=== PATIENT | female | born 1965 | race Caucasian/White ===

== ENCOUNTER → 2016-12-14 | Outpatient (REF) | payer OTHER | LOC: M LAB REF 16:23 | PROVIDERS: ATTEND Physician Assistant Medical | DX: J10.1 Influenza due to other identified influenza virus with other respiratory manifestations (principal) ==

== ENCOUNTER 2017-04-23 21:47 | Observation (INO) | payer OTHER ==
[~2017-04-23] VITALS: Ht 153.7 cm; Wt 50.4 kg
[2017-04-24] VITALS (10 sets, daily range): BP systolic 97–119; BP diastolic 56–72
[2017-04-24] MEDS ORDERED: KETOROLAC 30 MG/ML VIAL (J1885) IV ONE (00:30)
[2017-04-24 00:44] LABS: BASO % 0.5 % (0.0-1.0); EOS # 0.2 K/mm3 (0.0-0.50); EOS % 2.4 % (0.0-3.0); LARGE UNSTAINED CELL # 0.1 K/mm3 (0.0-0.4); LARGE UNSTAINED CELL % 0.8 % (0.0-4.0); LYMPH # 1.3 K/mm3 (1.5-4.5); LYMPH % 12.9 % (24.0-44.0); MEAN CORPUSCULAR HEMOGLOBIN 29.8 pg (27.0-33.0); MEAN CORPUSCULAR HGB CONC 32.5 g/dl (32.0-36.5); MEAN CORPUSCULAR VOLUME 91.6 fl (80.0-96.0); MONO # 0.4 K/mm3 (0.0-0.8); MONO % 4.1 % (0.0-5.0); NEUTROPHILS # 7.6 K/mm3 (1.8-7.7); NEUTROPHILS % 79.4 % (36.0-66.0); PLATELET COUNT, AUTOMATED 178 k/mm3 (150-450); RED CELL DISTRIBUTION WIDTH 12.5 % (11.5-14.5); WHITE BLOOD COUNT 9.6 K/mm3 (4.0-10.0)
[2017-04-24 00:45] LABS: ALBUMIN/GLOBULIN RATIO 1.25 (1.00-1.93); ALKALINE PHOSPHATASE 74 U/L (45-117); ALT/SGPT 17 U/L (12-78); AMYLASE 55 U/L (25-115); ANION GAP 5 MEQ/L (8-16); AST/SGOT 9 U/L (15-37); BILIRUBIN,DIRECT 0.1 MG/DL (0.0-0.2); BILIRUBIN,TOTAL 0.5 MG/DL (0.2-1.0); BLOOD UREA NITROGEN 13 MG/DL (7-18); CALCIUM LEVEL 8.9 MG/DL (8.5-10.1); CARBON DIOXIDE LEVEL 28 MEQ/L (21-32); CHLORIDE LEVEL 106 MEQ/L (98-107); CREATININE FOR GFR 0.92 MG/DL (0.55-1.02); GLOMERULAR FILTRATION RATE > 60.0 (>51); GLUCOSE, FASTING 127 MG/DL (70-105); POTASSIUM SERUM 3.9 MEQ/L (3.5-5.1); SODIUM LEVEL 139 MEQ/L (136-145); TOTAL PROTEIN 7.2 GM/DL (6.4-8.2)
[2017-04-24] MEDS ORDERED: ISOVUE-370 76% 100ML VIAL (Q9967) As Ordered ONE (00:47)
--- NOTE | 2017-04-24 01:20 | REPUSA ---
CLINICAL HISTORY: Abdominal pain. TECHNIQUE: Multiple axial, sagittal and coronal CT images were obtained through the abdomen and pelvi s after administration of intravenous contrast material. COMMENTS: Enlarged appendix measuring 1.8 cm. Surrounding inflammatory fat stranding. The liver is of uniform attenuation without mass or defect. There is no intra or extrahepatic biliary ductal dilatation. The spleen is normal. The gallbladder is within normal limits. The pancreas is of normal contour and attenuation characteristics. There is no evidence of adrenal mass. Both kidneys demonstrate prompt and equal nephrograms. The kidneys are normal in size, shape and conf iguration. There is no evidence of renal or ureteral mass. No renal or ureteral calculi are identifie d. There is no hydroureter or hydronephrosis. There is no bowel wall thickening. No evidence for small or large bowel obstruction. There is no evidence of intrinsic or extrinsic bladder mass. There is small amount of free pelvic flu id. Images of the lung bases show no evidence of pleural or parenchymal mass. There are no pleural effusi ons. The bony structures are free of lytic or blastic lesions. Multilevel degenerative changes are seen in volving the thoracolumbar spine. Scattered calcifications are seen involving the aorta and major bran ches compatible with atherosclerosis. Grade 1 anterolisthesis of L5 on S1 secondary to bilateral pars defects. IMPRESSION: Acute appendicitis. No perforation or abscess formation. Small amount of free pelvic fluid. Thank you for your kind referral of this patient.
[2017-04-24] MEDS ORDERED: IBUPOTC PO (02:05)
[2017-04-24] MEDS ORDERED: ACET1TAB17 PO (02:05)
[2017-04-24] MEDS ORDERED: MACA500C2 PO (02:05)
[2017-04-24] MEDS ORDERED: VITMTA PO (02:05)
[2017-04-24] MEDS ORDERED: CALC1TAB40 PO (02:05)
[2017-04-24] MEDS ORDERED: ONDANSETRON 4MG/2ML VIAL (J2405) IV PRN ×2 (02:15→10:45)
[2017-04-24] MEDS: LR 1,000 ML IV SCH ×3 (02:15→21:02)
[2017-04-24] MEDS ORDERED: ACETAMINOPHEN TAB 650MG DOSE (2X325MG) PO PRN (02:30)
[2017-04-24] MEDS: PIPERACILLIN/TAZOBACTAM SOD 3.375 GM in D5W MINI-BAG PLUS 50 ML IV SCH ×4 (02:34→21:00)
[2017-04-24] MEDS: MORPHINE 2 MG/ML 1ML SYRINGE IV PRN ×3 (05:17→22:22)
[2017-04-24] MEDS ORDERED: ROCURONIUM BROMIDE 50 MG/5 ML VIAL/SYRINGE As Ordered ONE (09:06)
[2017-04-24] MEDS ORDERED: PROPOFOL 200 MG/20 ML VIAL As Ordered ONE (09:06)
[2017-04-24] MEDS ORDERED: fentaNYL 250 MCG/5 ML INJECTION (J3010) As Ordered ONE (09:06)
[2017-04-24] MEDS ORDERED: MIDAZOLAM INJ 2 MG/2 ML VIAL (J2250) As Ordered ONE (09:06)
[2017-04-24] MEDS ORDERED: LIDOCAINE 2% INJ 100 MG/5 ML SDV (FOR ANES.) As Ordered ONE (09:06)
[2017-04-24] MEDS ORDERED: BUPIVACAINE/EPIN 0.25% 30 ML VIAL As Ordered ONE (09:13)
[2017-04-24] MEDS ORDERED: MOM 30ML SUSPENSION UDC PO PRN (09:15)
[2017-04-24] MEDS ORDERED: ZOSYN 3.375 GM VIAL (J2543) As Ordered ONE (09:44)
[2017-04-24] MEDS ORDERED: KETOROLAC 60 MG/2 ML VIAL (J1885) As Ordered ONE (09:51)
[2017-04-24] MEDS ORDERED: ONDANSETRON 4MG/2ML VIAL (J2405) As Ordered ONE (09:51)
[2017-04-24] MEDS ORDERED: GLYCOPYRROLATE INJ 0.2 MG/ML 2 ML VIAL As Ordered ONE (09:51)
[2017-04-24] MEDS ORDERED: NEOSTIGMINE 1MG/ML 5 ML SYRINGE (J2710) As Ordered ONE (09:51)
[2017-04-24] MEDS ORDERED: fentaNYL 100 MCG/2 ML INJECTION (J3010) As Ordered ONE ×2 (10:31→11:04)
[2017-04-24] MEDS: fentaNYL 100 MCG/2 ML INJECTION (J3010) IV PRN ×5 (10:34→11:05)
[2017-04-24] MEDS ORDERED: LR 1,000 ML IV SCH (10:45)
[2017-04-24] MEDS ORDERED: METOCLOPRAMIDE INJ 10MG/2ML VIAL (J2765) IV PRN (10:45)
[2017-04-24] MEDS ORDERED: PERCOCET 5MG/325MG TAB As Ordered ONE ×2 (11:04→11:47)
[2017-04-24] MEDS: PERCOCET 5MG/325MG TAB PO PRN ×2 (11:05→11:50)
[2017-04-24] MEDS: PANTOPRAZOLE 40MG INJ (PROTONIX) (C9113) IV SCH (14:11)
[2017-04-24] MEDS: SENOKOT S TAB PO SCH ×2 (14:11→21:00)
[2017-04-24] MEDS: KETOROLAC 30 MG/ML VIAL (J1885) IV PRN ×2 (14:11→21:01)
[2017-04-24] MEDS: NORCO, ANEXSIA 5/325MG TABLET (HYDROcodone/ACETAMINOPHEN) PO PRN (17:29)
--- NOTE | 2017-04-24 19:44 | HPE ---
DATE OF ADMISSION: 04/24/2017 CHIEF COMPLAINT: Right lower quadrant abdominal pain. HISTORY OF PRESENT ILLNESS: The patient is a 52-year-old female presents with right lower quadrant abdominal pain that started Saturday evening. Throughout the day Saturday the pain has gotten progressively worse. She thought it was just gas pains and tried to bear through it, however, when she started to develop fevers in the evening she knew that something was abnormal and came to the emergency room for evaluation. On presentation to the ER she had a temperature of 101. The rest of her vitals were stable. Her labs were also stable. The white count 9.6, however, CT scan showed acute appendicitis. Therefore, I was called to evaluate. This morning, she is still having significant right lower quadrant pain that is continuing to get progressively worse, associated was some nausea. She is unable to move in the bed because of the pain so severe. No problems with vomiting. No fevers since she has been here. No change in bowel movements or problems urinating. No previous surgeries to her abdomen and no recent travel or trauma to her abdomen. PAST MEDICAL HISTORY: Negative. PAST SURGICAL HISTORY: D C. ALLERGIES: None. HOME MEDICATIONS: Multivitamin. SOCIAL HISTORY: Denies any tobacco abuse. Drinks alcohol socially. Denies any drug abuse. FAMILY HISTORY: Noncontributory. REVIEW OF SYSTEMS: Pertinent positives and negative stated in the HPI. PHYSICAL EXAMINATION: General: Alert and oriented times three. No acute distress. Vitals: Temperature 99.8, pulse 72, respirations 18, blood pressure 112/64, pulse oximetry 97% on room air. HEENT: Pupils equal, round, reactive to light and accommodation. Heart: S1, S2, regular rate and rhythm. Lungs are clear to auscultation bilaterally. Abdomen: Soft, tender to palpation right lower quadrant with localized guarding and rigidity. Extremities: No clubbing, cyanosis or edema. LABS: White count 9.6, hemoglobin 12.6, platelets 178, potassium 3.9, creatinine 0.92. IMAGING STUDIES: CT abdomen and pelvis shows enlarged appendix at 1.8 cm with surrounding inflammatory fat stranding suspicious for appendicitis. ASSESSMENT/PLAN: The patient is a 52-year-old female with acute appendicitis. Recommendation to proceed with laparoscopic, possible open appendectomy. Risks and benefits of the procedure not limited to but including bleeding, infection, hernia formation, damage to surrounding structures, need for further surgery were discussed in detail with the patient. Informed consent was obtained and procedure was planned. The procedure was planned for this morning. Postoperatively she will be kept overnight with antibiotics until she is fever free for 24 hours with plan for discharge home in the morning.
[2017-04-25] VITALS: BP 95/57
[2017-04-25] MEDS: NORCO, ANEXSIA 5/325MG TABLET (HYDROcodone/ACETAMINOPHEN) PO PRN ×2 (00:23→06:18)
[2017-04-25] MEDS: LR 1,000 ML IV SCH (02:15)
[2017-04-25] MEDS: MORPHINE 2 MG/ML 1ML SYRINGE IV PRN (02:40)
[2017-04-25] MEDS: PIPERACILLIN/TAZOBACTAM SOD 3.375 GM in D5W MINI-BAG PLUS 50 ML IV SCH ×2 (03:06→08:47)
[2017-04-25] MEDS: KETOROLAC 30 MG/ML VIAL (J1885) IV PRN (03:06)
[2017-04-25 04:00] VITALS: BP 93/53
[2017-04-25 07:29] LABS: MEAN CORPUSCULAR HEMOGLOBIN 31.6 pg (27.0-33.0); MEAN CORPUSCULAR HGB CONC 34.3 g/dl (32.0-36.5); MEAN CORPUSCULAR VOLUME 92.2 fl (80.0-96.0); RED CELL DISTRIBUTION WIDTH 12.5 % (11.5-14.5); WHITE BLOOD COUNT 5.3 K/mm3 (4.0-10.0)
[2017-04-25 07:43] LABS: ANION GAP 3 MEQ/L (8-16); BLOOD UREA NITROGEN 9 MG/DL (7-18); CALCIUM LEVEL 8.1 MG/DL (8.5-10.1); CARBON DIOXIDE LEVEL 29 MEQ/L (21-32); CHLORIDE LEVEL 108 MEQ/L (98-107); CREATININE FOR GFR 0.87 MG/DL (0.55-1.02); GLOMERULAR FILTRATION RATE > 60.0 (>51); GLUCOSE, FASTING 104 MG/DL (70-105); POTASSIUM SERUM 4.1 MEQ/L (3.5-5.1); SODIUM LEVEL 140 MEQ/L (136-145)
[2017-04-25 08:00] VITALS: BP 94/50
[2017-04-25] MEDS ORDERED: CIPR500T3 PO (08:13)
[2017-04-25] MEDS ORDERED: NORCOTAB PO (08:13)
[2017-04-25] MEDS ORDERED: METR1TAB66 PO (08:13)
[2017-04-25] MEDS ORDERED: SENN1TAB2 PO (08:13)
[2017-04-25] MEDS: PANTOPRAZOLE 40MG INJ (PROTONIX) (C9113) IV SCH (08:47)
[2017-04-25] MEDS: SENOKOT S TAB PO SCH (08:47)
--- NOTE | 2017-04-26 10:15 | RO ---
DATE OF PROCEDURE: 04/25/2017 PREOPERATIVE DIAGNOSIS: Acute appendicitis. POSTOPERATIVE DIAGNOSIS: Acute appendicitis. PROCEDURE : Laparoscopic appendectomy. SURGEON: Dr. Ankit Perea SENIOR ELECTRONICS DESIGN ENGINEER: None. ANESTHESIA: General. ESTIMATED BLOOD LOSS: 5. COMPLICATIONS: None. INDICATIONS FOR PROCEDURE: The patient is a 52-year-old female who presents with a right lower quadrant pain found to have acute appendicitis on CT scan. Recommendation to proceed with laparoscopic, possible open appendectomy. Risks and benefits of procedure not limited but including bleeding, infection, hernia formation, damage surrounding structure, need further surgery were discussed in detail with the patient. Informed consent was obtained. Procedure was planned. PROCEDURE: The patient brought back to operating room #6. After sufficient sedation the abdomen was sterilely prepped and draped. Next, a time-out was done and confirm proper patient and proper procedure. Next a 5 mm made in left upper quadrant, Veress needle was inserted and the abdomen was insufflated 50 mmHg. Next, a 5 mm port was used to gain access to the abdomen, the abdomen was examined and the appendix could easily be identified on the lateral to the cecum. 8 mm port was placed infraumbilically. 5 mm port was placed suprapubically in the midline. The appendix was elevated up into the air, mesoappendix was carefully dissected free using the Enseal until the base the appendix was reached. Once the base of the appendix was reached it was ligated twice using PDS Endoloops and then amputated using the Enseal. Once the appendix was amputated there was a little bit of stool leakage that was contained to the right lower quadrant, appendix was brought out an EndoCatch bag. Right lower quadrant was aspirated without irrigation to avoid spreading. 19-[place] drain was then placed right around the base of the cecum and brought out through the suprapubic midline port site. The drain was sutured in place with a 2-0 nylon suture. Next fascia at the umbilical port site had to be widened to pull out the large appendix, this was sutured using a 0 Vicryl suture. Once this was completed, the abdomen was desufflated. Skin incisions were closed 4-0 Vicryl subcuticular sutures. The abdomen was cleaned and dried. Steri-Strips 4x4 and tape were applied thus ending procedure.
[2017-04-26] MEDS ORDERED: AUGM500T34 PO (23:06)
[2017-04-26] MEDS ORDERED: SENN1TAB2 PO (23:08)
[2017-04-26] MEDS ORDERED: NORC1TAB4 PO (23:08)
[2017-04-26] MEDS ORDERED: CIPR500T3 PO (23:08)
--- NOTE | 2017-04-27 14:06 | DSES ---
DATE OF ADMISSION: 04/24/2017 DATE OF DISCHARGE: 04/25/2017 ADMISSION DIAGNOSIS: Acute appendicitis. DISCHARGE DIAGNOSIS: Acute appendicitis. HOSPITAL COURSE: Patient is a 52-year-old female who presents on 04/24/2017 with severe right lower abdominal pain. She came the emergency room, found to have a fever as well as a CT findings suspicious for acute appendicitis. After careful history and physical, the recommendation was to take her for a laparoscopic appendectomy. She underwent that procedure yesterday morning on 04/24/2017. Postoperatively she did well. She had a drain left in place because of a little bit of stool drainage when the appendix burst open. This morning her drain is serosanguineous. No signs of any purulence or cloudiness to the drain. Her pain is much improved. No fevers overnight tolerating diet, ambulating okay and urinating appropriately. PLAN: Discharge home this morning. She will go home with a pain pill, stool softener as well as some antibiotics for another 7 days. She was given all of her discharge instructions. She can shower when she gets home. No lifting more 20 pounds. No bathing for 5 days and to call my office with any questions. She will follow up with me in 2 weeks for postop appointment.
== END 2017-04-25 11:30 | disposition home or self-care (01) ==
LOC: M ED 21:47 → M ED INP 04-24 01:47 → M PED 04-24 03:00
PROVIDERS: ADMIT Surgery; ATTEND Surgery
DX: K35.89 Other acute appendicitis (principal)
CPT/HCPCS: 36415; 44970; 74177; 80048; 80076; 81001; 82150; 83690; 85025; 85027; 86140; 88304; 96365; 96366; 96375; 96376; 99284; C9113; J1885; J2250; J2405; J2543; J2710; J3010; Q9967

== ENCOUNTER 2017-04-26 21:20 | Inpatient (IN) | payer OTHER ==
[~2017-04-26] VITALS: Ht 154.9 cm; Wt 49.4 kg
[~2017-04-26 21:20] MED LIST: ACET1TAB17 PO; CALC1TAB40 PO; CIPR500T3 PO; IBUPOTC PO; MACA500C2 PO; METR1TAB66 PO; NORCOTAB PO; SENN1TAB2 PO; VITMTA PO
[2017-04-26 22:59] LABS: ANION GAP 7 MEQ/L (8-16); BLOOD UREA NITROGEN 11 MG/DL (7-18); CALCIUM LEVEL 8.6 MG/DL (8.5-10.1); CARBON DIOXIDE LEVEL 29 MEQ/L (21-32); CHLORIDE LEVEL 107 MEQ/L (98-107); GLOMERULAR FILTRATION RATE > 60.0 (>51); GLUCOSE, FASTING 100 MG/DL (70-105); POTASSIUM SERUM 3.9 MEQ/L (3.5-5.1); SODIUM LEVEL 143 MEQ/L (136-145)
[2017-04-26] MEDS ORDERED: ONDANSETRON 4MG/2ML VIAL (J2405) IV PRN (23:00)
[2017-04-26] MEDS ORDERED: NORCO, ANEXSIA 5/325MG TABLET (HYDROcodone/ACETAMINOPHEN) PO PRN ×2 (23:00)
[2017-04-26 23:04] LABS: BASO % 0.5 % (0.0-1.0); EOS # 0.3 K/mm3 (0.0-0.50); EOS % 4.4 % (0.0-3.0); LARGE UNSTAINED CELL # 0.1 K/mm3 (0.0-0.4); LARGE UNSTAINED CELL % 1.6 % (0.0-4.0); LYMPH # 1.5 K/mm3 (1.5-4.5); LYMPH % 20.1 % (24.0-44.0); MEAN CORPUSCULAR HEMOGLOBIN 31.3 pg (27.0-33.0); MEAN CORPUSCULAR HGB CONC 34.2 g/dl (32.0-36.5); MEAN CORPUSCULAR VOLUME 91.6 fl (80.0-96.0); MONO # 0.3 K/mm3 (0.0-0.8); MONO % 4.5 % (0.0-5.0); NEUTROPHILS # 5.1 K/mm3 (1.8-7.7); PLATELET COUNT, AUTOMATED 202 k/mm3 (150-450); WHITE BLOOD COUNT 7.4 K/mm3 (4.0-10.0)
[2017-04-26] MEDS ORDERED: AUGM500T34 PO (23:06)
[2017-04-26] MEDS ORDERED: SENN1TAB2 PO (23:08)
[2017-04-26] MEDS ORDERED: NORC1TAB4 PO (23:08)
[2017-04-26] MEDS ORDERED: CIPR500T3 PO (23:08)
[2017-04-26] MEDS ORDERED: GASTROGRAFIN SOLUTION 30ML PO ONE (23:10)
[2017-04-26] MEDS ORDERED: ISOVUE-370 76% 100ML VIAL (Q9967) As Ordered ONE (23:23)
[2017-04-26] MEDS ORDERED: GASTROGRAFIN SOLUTION 30ML (Q9963) PO ONE (23:40)
[2017-04-27 00:30] VITALS: BP 115/81
[2017-04-27] MEDS: metroNIDAZOLE 500 MG in APPROPRIATE DILUENT 1 EA IV SCH ×3 (00:32→16:00)
--- NOTE | 2017-04-27 02:00 | REPUSA ---
CLINICAL HISTORY: Abdominal pain. TECHNIQUE: Multiple axial, sagittal and coronal CT images were obtained through the abdomen and pelvi s after administration of oral and intravenous contrast material. COMMENTS: Comparison to the prior exam performed on 04/24/2017. Recent appendectomy. 4.1x3.8 cm abscess formation in the surgical bed containing air densities. Surrounding inflammatory fat stranding. Surrounding enlarged lymph nodes with the largest measuring 1.4 cm. The liver is of uniform attenuation without mass or defect. There is no intra or extrahepatic biliary ductal dilatation. The spleen is normal. The gallbladder is within normal limits. The pancreas is of normal contour and attenuation characteristics. There is no evidence of adrenal mass. Both kidneys demonstrate prompt and equal nephrograms. The kidneys are normal in size, shape and conf iguration. There is no evidence of renal or ureteral mass. No renal or ureteral calculi are identifie d. There is no hydroureter or hydronephrosis. There is no bowel wall thickening. No evidence for small or large bowel obstruction. There is no evidence of intrinsic or extrinsic bladder mass. Images of the lung bases show no evidence of pleural or parenchymal mass. There are minimal bilateral pleural effusions. The bony structures are free of lytic or blastic lesions. IMPRESSION: Appendectomy. Abscess formation in the surgical bed. Surrounding inflammatory changes. Surrounding lymph node enlargement. Interval appearance of minimal pleural effusions with passive atelectatic airspace disease in the low er lobes. Thank you for your kind referral of this patient.
[2017-04-27] MEDS: CIPROFLOXACIN 400 MG in APPROPRIATE DILUENT 1 EA IV SCH ×2 (02:19→12:46)
[2017-04-27] MEDS: ACETAMINOPHEN TAB 650MG DOSE (2X325MG) PO PRN (06:34)
[2017-04-27 08:00] VITALS: BP 117/76
--- NOTE | 2017-04-27 11:30 | HPEPDOC ---
General Surgery H&P Date of Admission Apr 26, 2017 at 22:48 History and Physical CHIEF COMPLAINT: fever HISTORY OF PRESENT ILLNESS: [address] Perea who had laparoscopic appendectomy performed 2 days ago and discharged home yesterday. Patient called me (reception interviewer) for recurrent fevers when she got home. Last night she reports vomiting x 1 episode which she attributed to taking her oral antibiotics. This morning she notes a fever of 101 and she has been taking ibuprofen and fever persists. She feels ill when she is febrile, mildly nauseated, no diarrhea. She reports her abdomen feels only mildly tender where the incisions are. She denies being short of breath. As the fever continues she was advised to come in and she is subsequently admitted. ALLERGIES: Please see below. HOME MEDICATIONS: Please see below. PAST MEDICAL HISTORY: recent acute appendicitis PAST SURGICAL HISTORY: 1. D&C 2, laparoscopic appendectomy PERSONAL/SOCIAL HISTORY: Denies smoking, alcohol use, or recreational drug use. REVIEW OF SYSTEMS: GENERAL: fever, fatigue since surgery. HEENT: Denies blurred vision and double vision. Denies ear symptoms. Denies hoarseness. NECK: Denies any neck pain. CARDIOVASCULAR: Denies chest pain and palpitations. MUSCULOSKELETAL: Denies arthralgias, back pain and thrombophlebitis. SKIN: Denies rash. NEUROLOGIC: Denies headache, stroke and transient ischemic attack. PSYCHIATRIC: Denies anxiety and depression. ENDOCRINE: Denies thyroid disease. HEMATOLOGY/ONCOLOGY: Denies any bleeding or clotting disorder. HEART: Denies any chest pains, palpitations, paroxysmal dyspnea, orthopnea. PULMONARY: Denies chronic cough, dyspnea and wheezing. GASTROINTESTINAL: Denies rectal bleeding, family history of colon cancer, constipation, diarrhea, dysphagia, heartburn and jaundice. GENITOURINARY: Denies dysuria, frequency, hematuria and nocturia. ENDOCRINE: Denies polydipsia, polyphagia, polyuria, heat or cold intolerance. INFECTIOUS: Denies any recent upper respiratory tract infection, UTI, need for use of antibiotics. NUTRITION: Reports good appetite. PHYSICAL EXAMINATION: VITAL SIGNS: Please see below. GENERAL APPEARANCE: Patient seen at bedside, appears comfortable. Awake, alert, oriented. HEENT: Normocephalic, atraumatic. [place] palpebral conjunctivae. Anicteric sclerae. Lips moist. CHEST: No chest wall abnormalities. Normal respiratory motion/effort. NECK: Supple. No thyromegaly. No lymphadenopathies. LUNGS: Lung sounds are clear to auscultation bilaterally. No wheezing appreciated. HEART: No chest wall abnormalities. Heart rate and rhythm are regular with no murmurs. ABDOMEN: Abdomen is flat, soft, nondistended. mmild tenderness at umbilical port site and right lower quadrant . SKIN: Warm, moist. EXTREMITIES: Extremities have no deformities. No edema identified. NEUROLOGICAL: awake, alert, oriented. ANCILLARIES: . LABORATORY DATA: Please see below. MICROBIOLOGY: Please see below. IMAGING: CT of abdomen and pelvis Appendectomy. Abscess formation in the surgical bed. Surrounding inflammatory changes. Surrounding lymph node enlargement. Interval appearance of minimal pleural effusions with passive atelectatic airspace disease in the lower lobes. IMPRESSION AND PLAN: H/O acute appendicitis postop fever Too early for an abscess but certainly the fluid collection can be infected. Other sources of the fever includes the atelectasis. I will admit the patient for IV antibiotics. Encouraged patient to do deep breathing exercises/incentive spirometers. If still febrile, will consider percutaneous drainage of the fluid on saturday when radiology is available. Vital Signs Vital Signs Date Time Temp Pulse Resp B/P (MAP) Pulse Ox O2 Delivery O2 Flow Rate FiO2 04/27/17 08:00 98.8 65 18 117/76 (90) 97 Room Air I&Os I&O- Last 24 Hours up to 6 AM 04/27/17 06:00 Intake Total 300 ml Output Total 300 ml Balance 0 ml Laboratory Data Labs 24H Laboratory Tests 2 04/26/17 22:27: White Blood Count 7.4, Red Blood Count 3.71L, Hemoglobin 11.6L, Hematocrit 34.0L , Mean Corpuscular Volume 91.6, Mean Corpuscular Hemoglobin 31.3, Mean Corpuscular Hemoglobin Concent 34.2, Red Cell Distribution Width 12.0, Platelet Count 202, Neutrophils (%) (Auto) 69.0H, Lymphocytes (%) (Auto) 20.1L, Monocytes (%) (Auto) 4.5, Eosinophils (%) (Auto) 4.4H, Basophils (%) (Auto) 0.5 , Neutrophils # (Auto) 5.1, Lymphocytes # (Auto) 1.5, Monocytes # (Auto) 0.3, Eosinophils # (Auto) 0.3, Basophils # (Auto) 0.0, Large Unclassified Cells % 1.6 , Large Unclassified Cells # 0.1, Anion Gap 7L, Glomerular Filtration Rate > 60.0, Lactic Acid Level 0.7, Blood Urea Nitrogen 11, Creatinine 0.70, Sodium Level 143, Potassium Level 3.9, Chloride Level 107, Carbon Dioxide Level 29, Calcium Level 8.6 CBC/BMP Laboratory Tests 04/26/17 22:27 Red Blood Count 3.71 L, Mean Corpuscular Volume 91.6, Mean Corpuscular Hemoglobin 31.3, Mean Corpuscular Hemoglobin Concent 34.2, Red Cell Distribution Width 12.0, Neutrophils (%) (Auto) 69.0 H, Lymphocytes (%) (Auto) 20.1 L, Monocytes (%) (Auto) 4.5, Eosinophils (%) (Auto) 4.4 H, Basophils (%) ( Auto) 0.5, Neutrophils # (Auto) 5.1, Lymphocytes # (Auto) 1.5, Monocytes # (Auto ) 0.3, Eosinophils # (Auto) 0.3, Basophils # (Auto) 0.0, Calcium Level 8.6 Microbiology Microbiology 04/26/17 Blood Culture, Received Pending 04/26/17 Blood Culture, Received Pending Home Medications Scheduled (Calcium & Magnesium + Zin 334-134-5 mg) 1 Tab Tab, 1 TAB PO BID, (Reported) (Senna Plus 8.6-50 mg) 1 Tab Tab, 1 TAB PO BID, (Reported) Ciprofloxacin HCl (Ciprofloxacin HCl) 500 Mg Tab, 500 MG PO BID, (Reported) Stacy Root (Stacy) 500 Mg Cap, 500 MG PO DAILY, (Reported) Multivitamins *[facility] STOCKED* (Thera M Plus *[facility]OCK[facility]*) 1 Tab Tab, 1 TAB PO DAILY, (Reported) Scheduled PRN Acetaminophen (Acetaminophen) 325 Mg Tab, 650 MG PO Q4H PRN for PAIN, (Reported) Acetaminophen/Hydrocodone ([place] 5-325 mg) 1 Tab Tab, 1 TAB PO Q6H PRN for PAIN SCALE 6-10, (Reported) Ibuprofen (Ibuprofen) 200 Mg Tab, 400 MG PO Q6H PRN for PAIN, (Reported) Allergies Coded Allergies: No Known Allergies (Verified , 03/15/03) CONCHA BEJARANO MD Apr 27, 2017 11:30
[2017-04-27 16:00] VITALS: BP 137/85
[2017-04-27 20:00] VITALS: BP 126/84
[2017-04-27] MEDS: SENNA 8.6 MG TAB (SENOKOT) PO SCH (21:24)
[2017-04-28] VITALS: BP 111/73
[2017-04-28] MEDS: metroNIDAZOLE 500 MG in APPROPRIATE DILUENT 1 EA IV SCH ×4 (00:37→23:23)
[2017-04-28] MEDS: CIPROFLOXACIN 400 MG in APPROPRIATE DILUENT 1 EA IV SCH ×2 (02:11→13:19)
[2017-04-28] MEDS: ACETAMINOPHEN TAB 650MG DOSE (2X325MG) PO PRN (06:49)
[2017-04-28 07:22] LABS: BASO % 0.3 % (0.0-1.0); EOS # 0.2 K/mm3 (0.0-0.50); LARGE UNSTAINED CELL # 0.1 K/mm3 (0.0-0.4); LARGE UNSTAINED CELL % 1.5 % (0.0-4.0); LYMPH # 1.2 K/mm3 (1.5-4.5); LYMPH % 18.9 % (24.0-44.0); MEAN CORPUSCULAR HEMOGLOBIN 31.2 pg (27.0-33.0); MEAN CORPUSCULAR HGB CONC 34.2 g/dl (32.0-36.5); MEAN CORPUSCULAR VOLUME 91.1 fl (80.0-96.0); MONO # 0.4 K/mm3 (0.0-0.8); NEUTROPHILS # 4.3 K/mm3 (1.8-7.7); NEUTROPHILS % 70.2 % (36.0-66.0); PLATELET COUNT, AUTOMATED 231 k/mm3 (150-450); RED CELL DISTRIBUTION WIDTH 12.3 % (11.5-14.5); WHITE BLOOD COUNT 6.1 K/mm3 (4.0-10.0)
[2017-04-28 07:38] LABS: ANION GAP 8 MEQ/L (8-16); BLOOD UREA NITROGEN 6 MG/DL (7-18); CALCIUM LEVEL 8.6 MG/DL (8.5-10.1); CARBON DIOXIDE LEVEL 28 MEQ/L (21-32); CHLORIDE LEVEL 106 MEQ/L (98-107); CREATININE FOR GFR 0.72 MG/DL (0.55-1.02); GLOMERULAR FILTRATION RATE > 60.0 (>51); GLUCOSE, FASTING 98 MG/DL (70-105); POTASSIUM SERUM 4.3 MEQ/L (3.5-5.1); SODIUM LEVEL 142 MEQ/L (136-145)
[2017-04-28 09:00] VITALS: BP 120/77
[2017-04-28] MEDS: SENNA 8.6 MG TAB (SENOKOT) PO SCH ×2 (09:01→20:17)
[2017-04-28 16:30] VITALS: BP 115/83
[2017-04-28 19:00] VITALS: BP 131/84
[2017-04-28 22:00] VITALS: BP 112/73
[2017-04-29] MEDS: CIPROFLOXACIN 400 MG in APPROPRIATE DILUENT 1 EA IV SCH ×2 (00:32→13:16)
[2017-04-29] MEDS ORDERED: FUROSEMIDE 40 MG/4 ML VIAL (J1940) IV ONE (03:15)
[2017-04-29 06:00] VITALS: BP 112/78
[2017-04-29] MEDS: SENNA 8.6 MG TAB (SENOKOT) PO SCH (08:10)
[2017-04-29] MEDS: metroNIDAZOLE 500 MG in APPROPRIATE DILUENT 1 EA IV SCH ×2 (08:11→15:12)
[2017-04-29] MEDS ORDERED: MORPHINE 2 MG/ML 1ML SYRINGE IV ONE (10:30)
[2017-04-29 14:00] VITALS: BP 119/83
[2017-04-29 17:20] VITALS: BP 118/80
--- NOTE | 2017-04-29 17:48 | REP ---
ULTRASOUND, RIGHT LOWER QUADRANT: Real-time sonographic evaluation of the right lower extremity was performed. COMPARISON: Made with recent CT scan 04/27/2017 which showed a small air/fluid collection adjacent to the cecum. Ultrasound of the pericecal region demonstrates edematous and phlegmonous change without a definite discrete fluid collection. Recommend clinical followup and if there is clinical concern for abscess than a repeat CT scan should be performed. Signed by Ankit Mccoy MD 04/30/2017 04:37 P
--- NOTE | 2017-05-02 16:38 | DSES ---
DATE OF ADMISSION: 04/26/2017 DATE OF DISCHARGE: 04/29/2017 ADMISSION DIAGNOSES: 1. Fever. 2. Abdominal pain. DISCHARGE DIAGNOSIS: Postoperative atelectasis. HOSPITAL COURSE: The patient is a 52-year-old female who presented status post laparoscopic appendectomy. She had her surgery completed on April 24 and was discharged home on April 25. She returned to the hospital on the evening of April 26 due to having persistent fevers at home. In the emergency room (ER) she had a temperature of 99.1 initially that went up to 100.1, she had some abdominal pains. A CT scan that shows a small fluid collection right at the base of her appendix, but her labs were all within normal range. CT scan also showed a little bit of atelectasis in the base of her right lung. She was kept in the hospital over the weekend, IV fluids, incentive spirometry. As soon as she started to use the incentive spirometry, her pain immediately improved, and all her feverish symptoms went away. No real problems with abdominal pain. She was tolerating a diet, having normal bowel movements during this stay. Her white count remains normal, 7.4 and 6.1. On the morning of April 29, we had interventional radiology re-examine for possible drainage of this fluid collection in her right lower side; however, on ultrasound exam there was no visible collection. The collection that was seen on the initial CT scan was likely a postoperative seroma, just like fluid collection, that was secondary to her surgery. It was less likely an abscess, since all of her symptoms were relieved by incentive spirometry. With an mind, she was discharged home. She already had Cipro and Flagyl that she was discharged home with originally. She will continue to use up the rest of those medications for about 5 days in length. She was advised to continue using her incentive spirometry as well and call the office if there is any new problems or questions that arise.
== END 2017-04-29 18:20 | disposition home or self-care (01) | DRG 206 ==
LOC: M ED 21:20 → M ED INP 22:48 → M PED 04-27 00:15 → M MSPAV 04-28 19:25
PROVIDERS: ADMIT Surgery; ATTEND Surgery
DX: J98.11 Atelectasis (principal); K91.872 Postprocedural seroma of a digestive system organ or structure following a digestive system procedure; R50.82 Postprocedural fever; Z79.899 Other long term (current) drug therapy

== ENCOUNTER → 2017-11-20 | Outpatient (REF) | payer OTHER ==
[2017-11-30 00:07] LABS: HPV HYBRID CAPTURE II Negative (Negative)
== END ==
LOC: M SFHCWAGY 09:52
DX: Z12.4 Encounter for screening for malignant neoplasm of cervix (principal)
CPT/HCPCS: G0123

== ENCOUNTER → 2017-11-29 | Outpatient (CLI) | payer OTHER | LOC: M WHC 08:07 | DX: Z12.31 Encounter for screening mammogram for malignant neoplasm of breast (principal) ==

== ENCOUNTER → 2018-12-18 | Outpatient (CLI) | payer OTHER ==
[~2018-12-18] MED LIST changes: -ACET1TAB17 PO; +ACET1TAB55 PO; +AUGM500T34 PO; +HYDR-3715 PO; +METR-265 PO; -METR1TAB66 PO; +NORC1TAB7 PO; -NORCOTAB PO; -SENN1TAB2 PO; +SENN1TAB40 PO
--- NOTE | 2018-12-18 11:00 | REPMRS ---
Patient History The patient states she had a clinical breast exam in 12/2018. Family history of ovarian cancer at age 50 or over in maternal grandmother. Digital Woman Screen Mammo: December 18, 2018 - Exam #: [id number] Bilateral CC and MLO view(s) were taken. Technologist: Chiqui Awan, Technologist Prior study comparison: November 29, 2017, digital woman screen mammo performed at [facility]. June 12, 2016, digital woman screen mammo performed at [facility]. March 22, 2015, digital woman screen mammo performed at [facility]. FINDINGS: The breast tissue is heterogeneously dense. This may lower the sensitivity of mammography. There is a moderate amount of heterogeneously dense fibroglandular tissue which is fairly symmetric. There is no interval development of dominant mass, architectural distortion, or clustered microcalcification typical of malignancy. There has been no change in the appearance of the mammogram from the prior studies. 3-D tomosynthesis shows no additional findings. Assessment: BI-RADS/ACR category 1 mammogram. Negative Mammogram. Recommendation Routine screening mammogram of both breasts in 1 year (for women over age 40). This patient's Lifetime Breast Cancer RIsk is estimated at 12.5 %. This mammogram was interpreted with the aid of an FDA-approved computer-aided dectection system. Electronically Signed By: Farhat Pham MD 12/18/18 [id number]
== END ==
LOC: M WHC 08:43
PROVIDERS: ATTEND Nurse Practitioner Family
DX: Z12.31 Encounter for screening mammogram for malignant neoplasm of breast (principal)

== ENCOUNTER → 2018-12-18 | Outpatient (REF) | payer OTHER | LOC: M SFHCWAGY 09:16 | PROVIDERS: ATTEND Nurse Practitioner Family | DX: Z12.4 Encounter for screening for malignant neoplasm of cervix (principal) ==

== ENCOUNTER → 2020-04-20 | Outpatient (CLI) | payer OTHER ==
[~2020-04-20] MED LIST changes: +SENN-53 PO; -SENN1TAB40 PO
--- NOTE | 2020-05-09 13:36 | REPMRS ---
Patient History The patient states she had a clinical breast exam in 04/2020. Patient is postmenopausal and had first child at age 32. Family history of ovarian cancer at age 50 or over in maternal grandmother. Digital Woman Screen Mammo: April 20, 2020 - Exam #: [id number] Bilateral CC and MLO view(s) were taken. Technologist: Denise Cavazos, Technologist Prior study comparison: December 18, 2018, bilateral digital woman screen mammo performed at [facility]. November 29, 2017, digital woman screen mammo performed at [facility]. June 12, 2016, digital woman screen mammo performed at [facility]. FINDINGS: The breast tissue is extremely dense which could obscure a lesion on mammography. The [place]para volumetric breast density category is: D. There is an extremely dense symmetrical pattern of residual fibroglandular tissue. There has been no change in the appearance of the mammogram from the previous studies. There is no interval development of dominant mass, archetectural distortion, or grouped microcalcifications suggestive of malignancy. 3-D tomosynthesis shows no additional findings. Assessment: BI-RADS/ACR category 1 mammogram. Negative Mammogram. Recommendation Routine screening mammogram of both breasts in 1 year (for women over age 40). This patient's Lifetime Breast Cancer RIsk is estimated at 11.9 %. This mammogram was interpreted with the aid of an FDA-approved computer-aided dectection system. Electronically Signed By: Farhat Pham MD 05/09/20 [id number]
== END ==
LOC: M WHC 07:32
PROVIDERS: ATTEND Nurse Practitioner Family
DX: Z12.31 Encounter for screening mammogram for malignant neoplasm of breast (principal); Z78.0 Asymptomatic menopausal state

== ENCOUNTER → 2020-04-20 | Outpatient (REF) | payer OTHER | LOC: M SFHCPLAZ 11:40 | PROVIDERS: ATTEND Nurse Practitioner Family | DX: Z12.4 Encounter for screening for malignant neoplasm of cervix (principal) ==

== ENCOUNTER → 2021-06-07 | Outpatient (CLI) | payer OTHER ==
--- NOTE | 2021-06-07 09:16 | REPMRS ---
Patient History The patient states she had a clinical breast exam 06-07-2021. Patient is postmenopausal and had first child at age 32. Family history of ovarian cancer at age 83 in maternal grandmother. No Hormone Replacement Therapy Patient states no breast complaints today. Patient has signed MRS History Sheet. Digital Woman Screen Mammo: June 07, 2021 - Exam #: [id number] Bilateral CC and MLO view(s) were taken. Technologist: Sharla Rosenberg, Chief Supply Chain Officer Prior study comparison: April 20, 2020, bilateral digital woman screen mammo performed at [facility]. December 18, 2018, bilateral digital woman screen mammo performed at [facility]. FINDINGS: The breast tissue is extremely dense which could obscure a lesion on mammography. Screening. Digital screening (2D) mammography was performed bilaterally in the CC and MLO projections. Additionally, breast tomosynthesis (3D mammography) was performed bilaterally in the CC and MLO projections. Todays exam was compared to the prior exam/exams. By history, the patient has no complaints of a palpable breast abnormality or other significant breast complaints. The breasts are unchanged in size and shape. Once again, dense heterogenous fibroglandular elements are seen bilaterally in a stable appearing pattern but to such a degree that the sensitivity of the mammogram in detecting cancer is decreased.There are no margarita-soft tissue densities or spiculated masses. There is no internal architectural distortion. Once again, stable benign appearing calcifications are seen.There are no suspicious margarita-calcific clusters. Skin thickening or nipple retraction is not present. IMPRESSION: BI-RADS Category 2- Benign Findings. There is no evidence of malignant alteration of the breasts. Followup examination recommended in one year. The Volpara volumetric breast density category is D, the breasts are extremely dense which lowers the sensitivity of mammography. This mammogram was read with the assistance of [employer],an FDA approved computer aided detection system for mammography. The lifetime Tyrer-Cuzick score is 11.4 % Due to the density of the breasts or Tyrer Cuzick score of 20% or greater, MRI/whole breast screening ultrasound is warranted. Negative x-ray reports should not delay surgical consultation if a dominant or clinically suspicious mass is present. Not all breast cancers can be identified by mammography. Therefore, we recommend that you continue to perform regular breast self-examination and physical examination and then promptly contact your physician of any concerns or changes. Adenosis and dense breasts may obscure an underlying neoplasm. Assessment: BI-RADS/ACR category 2 mammogram. Benign Findings. Recommendation Routine screening mammogram of both breasts in 1 year. Electronically Signed By: Miguel Vasquez DO 06/07/21 0915
== END ==
LOC: M WHC 07:53
PROVIDERS: ATTEND Nurse Practitioner Women's Health
DX: Z12.31 Encounter for screening mammogram for malignant neoplasm of breast (principal); Z80.41 Family history of malignant neoplasm of ovary; R92.1 Mammographic calcification found on diagnostic imaging of breast

== ENCOUNTER → 2021-06-07 | Outpatient (REF) | payer OTHER | LOC: M SFHCWAGY 14:08 | PROVIDERS: ATTEND Nurse Practitioner Women's Health | DX: Z12.4 Encounter for screening for malignant neoplasm of cervix (principal); Z95.2 Presence of prosthetic heart valve ==

== ENCOUNTER → 2021-10-26 | Outpatient (REF) | payer OTHER ==
[2021-10-26 17:04] LABS: APPEARANCE, URINE CLEAR (CLEAR); BACTERIA, URINE AUTO 2+ (NEGATIVE); BILIRUBIN, URINE AUTO NEGATIVE (NEGATIVE); BLOOD, URINE BLOOD 3+ (NEGATIVE); COLOR, URINE YELLOW (YELLOW); GLUCOSE, URINE (UA) AUTO NEGATIVE (NEGATIVE); KETONE, URINE AUTO NEGATIVE (NEGATIVE); LEUKOCYTE ESTERASE, URINE AUTO 3+ (NEGATIVE); NITRITE, URINE AUTO POSITIVE (NEGATIVE); PROTEIN, URINE AUTO 2+ mg/dL (NEGATIVE); RBC, URINE AUTO TNTC /HPF (0-3); SPECIFIC GRAVITY URINE AUTO 1.006 (1.002-1.035); SQUAMOUS EPITHELIAL CELL UR AU 0 /HPF (0-6); UROBILINOGEN, URINE AUTO 0.2 mg/dL (0.0-2.0); WBC, URINE AUTO TNTC /HPF (0-3)
== END ==
LOC: M LAB REF 16:09
PROVIDERS: ATTEND Physician Assistant
DX: N39.0 Urinary tract infection, site not specified (principal)

== ENCOUNTER → 2022-04-24 | Outpatient (CLI) | payer OTHER | LOC: M PLALAB 11:04 | PROVIDERS: ATTEND Advanced Practice Midwife | DX: Z13.89 Encounter for screening for other disorder (principal); Z80.41 Family history of malignant neoplasm of ovary ==

== ENCOUNTER → 2022-11-16 | Outpatient (CLI) | payer OTHER | LOC: M WHC 07:29 | PROVIDERS: ATTEND Nurse Practitioner Family | DX: Z12.31 Encounter for screening mammogram for malignant neoplasm of breast (principal); Z80.41 Family history of malignant neoplasm of ovary; Z80.3 Family history of malignant neoplasm of breast ==

== ENCOUNTER → 2022-11-16 | Outpatient (REF) | payer OTHER | LOC: M PLALAB 08:29 | PROVIDERS: ATTEND Nurse Practitioner Family | DX: Z12.4 Encounter for screening for malignant neoplasm of cervix (principal) | CPT/HCPCS: 87624; G0123 ==

== ENCOUNTER → 2023-01-01 | Outpatient (CLI) | payer OTHER | LOC: M RAD 17:26 | PROVIDERS: ATTEND Physician Assistant Medical | DX: R50.9 Fever, unspecified (principal); R05.9 Cough, unspecified ==

== ENCOUNTER → 2023-07-19 | Outpatient (CLI) | payer OTHER ==
[~2023-07-19] MED LIST changes: +PROHANCE 279.3MG/ML 5ML VIAL ONE
== END ==
LOC: M PLAIMG 13:26
PROVIDERS: ATTEND Nurse Practitioner Family
DX: R92.8 Other abnormal and inconclusive findings on diagnostic imaging of breast (principal); Z80.3 Family history of malignant neoplasm of breast; R92.333 Mammographic heterogeneous density, bilateral breasts
CPT/HCPCS: A9576; C8908

== ENCOUNTER → 2025-05-18 | Outpatient (REF) | payer OTHER ==
[~2025-05-18] MED LIST changes: -PROHANCE 279.3MG/ML 5ML VIAL ONE
[2025-05-20 13:47] LABS: HPV APTIMA Not Detected (Not Detected)
== END ==
LOC: M SFHCWAGY 10:20
PROVIDERS: ATTEND Advanced Practice Midwife
DX: Z12.4 Encounter for screening for malignant neoplasm of cervix (principal)
CPT/HCPCS: 87624; G0123

== ENCOUNTER → 2025-05-18 | Outpatient (CLI) | payer OTHER | LOC: M WHC 08:30 | PROVIDERS: ATTEND Advanced Practice Midwife | DX: Z12.31 Encounter for screening mammogram for malignant neoplasm of breast (principal); R92.333 Mammographic heterogeneous density, bilateral breasts ==